=== PATIENT | male | born 1950 | race Caucasian/White ===

== ENCOUNTER → 2018-03-03 | Outpatient (CLI) | payer BC | END | disposition home or self-care (01) | LOC: CVU 12:14 | PROVIDERS: ATTEND Internal Medicine Cardiovascular Disease | DX: I11.9 Hypertensive heart disease without heart failure (principal); I48.91 Unspecified atrial fibrillation | CPT/HCPCS: 93306 ==

== ENCOUNTER → 2018-04-04 | Outpatient (CLI) | payer BC ==
[~2018-04-04] MED LIST: ASCO1TAB2 PO; ASCO1TAB4 PO; ASPI325T17 PO; ATOR20TA9 PO; BUDE10.2 INH; CARI350T14 PO; CHOL500045 PO; DIAZ10TA4 PO; DILT240C77 PO; DULO60CA7 PO; ESOM40CA PO; HYDR25TA6 PO; LEVA15HF4 INH; LEVO200T42 PO; LEVO25TA45 PO; METH5TAB2 PO; MONT10TA9 PO; OMEG-157 PO; OXYC-307 PO; PRAS25CA6 PO; TAMS0.4C2 PO; TELM80TA PO; UBID100C24 PO; VITA150T PO
== END | disposition home or self-care (01) ==
LOC: STAR 11:03
PROVIDERS: ATTEND Internal Medicine Cardiovascular Disease
DX: Z02.9 Encounter for administrative examinations, unspecified (principal)

== ENCOUNTER → 2018-04-04 | Outpatient (CLI) | payer BC ==
[~2018-04-04] MED LIST changes: +OMNIPAQUE 350 MG/ML, 150 ML BOTTLE ONE
== END | disposition home or self-care (01) ==
LOC: CFH 09:49
PROVIDERS: ATTEND Internal Medicine Cardiovascular Disease
DX: I48.91 Unspecified atrial fibrillation (principal); J98.4 Other disorders of lung; I11.9 Hypertensive heart disease without heart failure
CPT/HCPCS: 75572; Q9967

== ENCOUNTER 2018-04-09 06:23 | Inpatient (IN) | payer BC, MEDICARE ==
[2018-04-04 11:36] VITALS: BP 151/95
[~2018-04-09] VITALS: Ht 180.3 cm; Wt 114.8 kg
[~2018-04-09 06:23] MED LIST changes: -OMNIPAQUE 350 MG/ML, 150 ML BOTTLE ONE
[2018-04-09] MEDS ORDERED: SODIUM CHLORIDE 0.9% 1,000 ML IV SCH (07:13)
[2018-04-09] MEDS ORDERED: SODIUM CHLORIDE 0.9% 1,000 ML IV ONE (07:30)
[2018-04-09] MEDS ORDERED: HEPARIN 1,000 UNITS/ML, 10ML ONE (07:42)
[2018-04-09] MEDS ORDERED: PROTAMINE SULFATE 10 MG/ML, 5ML ONE (07:42)
[2018-04-09] MEDS ORDERED: FENTANYL PF 250 MCG/5ML ONE (08:04)
[2018-04-09] MEDS ORDERED: MIDAZOLAM 1 MG/ML, 2ML ONE (08:04)
[2018-04-09] MEDS ORDERED: DEXAMETHASONE 4 MG/ML, 1ML ONE (08:06)
[2018-04-09] MEDS ORDERED: PROPOFOL 10 MG/ML, 20ML ONE (08:06)
[2018-04-09] MEDS ORDERED: ONDANSETRON 2MG/ML, 2ML ONE (08:06)
[2018-04-09] MEDS ORDERED: ROCURONIUM 10 MG/ML,10ML ONE (08:06)
[2018-04-09] MEDS ORDERED: LIDOCAINE 2%, 50ML ONE (08:26)
[2018-04-09] MEDS ORDERED: FENTANYL PF 100 MCG/2ML ONE (10:04)
[2018-04-09] MEDS ORDERED: APIXABAN 5 MG TABLET ONE (10:40)
[2018-04-09] MEDS ORDERED: CARISOPRODOL 350 MG TABLET PO SCH (11:00)
[2018-04-09] MEDS ORDERED: ZOLPIDEM 5MG TABLET PO PRN ×2 (11:00→16:30)
[2018-04-09] MEDS ORDERED: APIXABAN 5 MG TABLET PO SCH (11:00)
[2018-04-09] MEDS ORDERED: TEMPLATE NON-FORMULARY MED. (Levalbuterol Tartrate** (Xopenex Hfa**) 2 PUFF) INH PRN ×2 (11:00→16:30)
[2018-04-09] MEDS ORDERED: ONDANSETRON ODT 8 MG PO PRN (11:30)
[2018-04-09] MEDS ORDERED: OXYcodone 5 MG/5 ML ORAL.SOL UDC PO PRN (11:30)
[2018-04-09] MEDS ORDERED: hydrALAzine 20 MG/ML, 1ML IV PRN (11:30)
[2018-04-09] MEDS ORDERED: DIPHENHYDRAMINE 50 MG/ML, 1ML IVPush PRN (11:30)
[2018-04-09] MEDS ORDERED: PROMETHAZINE 25 MG SUPP PR PRN (11:30)
[2018-04-09] MEDS ORDERED: MORPHINE SULFATE 4 MG/ML, 1ML IVPush PRN (11:30)
[2018-04-09] MEDS ORDERED: MIDAZOLAM 1 MG/ML, 2ML IV PRN (11:30)
[2018-04-09] MEDS ORDERED: EPHEDRINE 50 MG/ML, 1ML IVPush PRN (11:30)
[2018-04-09] MEDS ORDERED: PROMETHAZINE 25 MG/ML, 1ML IV PRN (11:30)
[2018-04-09] MEDS ORDERED: LABETALOL 5MG/ML, 20ML IV PRN (11:30)
[2018-04-09] MEDS ORDERED: FENTANYL PF 100 MCG/2ML IV PRN (11:30)
[2018-04-09] MEDS ORDERED: ACETAMINOPHEN 325 MG TABLET PO PRN (11:30)
[2018-04-09 16:07] VITALS: BP 137/86
[2018-04-09] MEDS: OXYcodone/APAP 10/325MG TABLET PO SCH ×3 (16:40→23:09)
[2018-04-09] MEDS ORDERED: OXYcodone/APAP 10/325MG TABLET ONE ×2 (17:25→23:07)
[2018-04-09] MEDS ORDERED: SOTALOL 120MG TABLET PO SCH (18:00)
[2018-04-09 18:10] VITALS: BP 119/76
[2018-04-09] MEDS: SOTALOL 120MG TABLET PO SCH (18:11)
[2018-04-09] MEDS ORDERED: BIOFLAVONOID PO SCH (21:00)
[2018-04-09] MEDS: TEMPLATE NON-FORMULARY MED. (Budesonide/Formoterol Fumarate (Symbicort 160-4.5 Mcg Inhaler INH SCH (21:00)
[2018-04-09] MEDS ORDERED: [UNRECOGNIZED DRUG - OTHER] PO SCH (21:00)
[2018-04-09] MEDS ORDERED: TEMPLATE NON-FORMULARY MED. (Atorvastatin Calcium** 20 MG) PO SCH (21:00)
[2018-04-09] MEDS ORDERED: TEMPLATE NON-FORMULARY MED. (Esomeprazole Magnesium** (Nexium**) 40 MG) PO SCH (21:00)
[2018-04-09] MEDS ORDERED: ASCORBATE CALCIUM PO SCH (21:00)
[2018-04-09] MEDS ORDERED: TEMPLATE NON-FORMULARY MED. (Budesonide/Formoterol Fumarate (Symbicort 160-4.5 Mcg Inhaler INH SCH (21:00)
[2018-04-09] MEDS: CARISOPRODOL 350 MG TABLET PO SCH (21:00)
[2018-04-09] MEDS: ATORVASTATIN 20 MG TABLET PO SCH (21:09)
[2018-04-09] MEDS: ASCORBIC ACID 500 MG TABLET PO SCH (21:09)
[2018-04-09] MEDS: OMEPRAZOLE 20 MG CAPSULE.DR PO SCH (21:10)
[2018-04-09] MEDS: APIXABAN 5 MG TABLET PO SCH (21:10)
[2018-04-10 01:53] VITALS: BP 116/69
[2018-04-10] MEDS: CARISOPRODOL 350 MG TABLET PO SCH (02:34)
[2018-04-10] MEDS ORDERED: OXYcodone/APAP 10/325MG TABLET ONE ×4 (04:56→23:37)
[2018-04-10] MEDS: OXYcodone/APAP 10/325MG TABLET PO SCH ×4 (04:58→23:43)
[2018-04-10] MEDS: SOTALOL 120MG TABLET PO SCH ×2 (06:03→17:41)
[2018-04-10] MEDS ORDERED: LEVOTHYROXINE 100 MCG TABLET ONE (07:49)
[2018-04-10 07:59] VITALS: BP 134/73
[2018-04-10] MEDS: LEVOTHYROXINE 200 MCG TABLET PO SCH (08:35)
[2018-04-10] MEDS: LEVOTHYROXINE 25 MCG TABLET PO SCH (08:35)
[2018-04-10] MEDS: OMEPRAZOLE 20 MG CAPSULE.DR PO SCH ×2 (08:35→20:31)
[2018-04-10] MEDS ORDERED: DIAZEPAM 5 MG TABLET ONE (08:41)
[2018-04-10] MEDS: DIAZEPAM 10 MG TABLET PO SCH (08:42)
[2018-04-10] MEDS: TEMPLATE NON-FORMULARY MED. (Telmisartan** (Micardis**) 80 MG) PO SCH (08:43)
[2018-04-10] MEDS: TEMPLATE NON-FORMULARY MED. (Budesonide/Formoterol Fumarate (Symbicort 160-4.5 Mcg Inhaler INH SCH ×2 (08:43→20:33)
[2018-04-10] MEDS: OMEGA-3/FISH OIL CAPSULE PO SCH (08:48)
[2018-04-10] MEDS: MONTELUKAST 10 MG TABLET PO SCH (08:49)
[2018-04-10] MEDS: CHOLECALCIFEROL 1,000 UNIT TABLET PO SCH (08:49)
[2018-04-10] MEDS: HYDROCHLOROTHIAZIDE 25 MG TABLET PO SCH (08:49)
[2018-04-10] MEDS: DULOXETINE 30 MG CAPSULE.DR PO SCH (08:49)
[2018-04-10] MEDS: TAMSULOSIN 0.4 MG CAP.ER.24H PO SCH (08:49)
[2018-04-10] MEDS: ASCORBIC ACID 500 MG TABLET PO SCH ×2 (08:50→20:31)
[2018-04-10] MEDS: APIXABAN 5 MG TABLET PO SCH ×2 (08:50→20:30)
[2018-04-10] MEDS ORDERED: LEVOTHYROXINE 200 MCG TABLET PO SCH (09:00)
[2018-04-10] MEDS ORDERED: FISH OIL PO SCH (09:00)
[2018-04-10] MEDS ORDERED: TEMPLATE NON-FORMULARY MED. (Prasterone (Dhea) (Dhea 25) 25 MG) PO SCH ×2 (09:00)
[2018-04-10] MEDS ORDERED: DHA PO SCH (09:00)
[2018-04-10] MEDS ORDERED: [UNRECOGNIZED DRUG - OTHER] PO SCH (09:00)
[2018-04-10] MEDS ORDERED: CHOLECALCIFEROL 5000 UNIT PO SCH (09:00)
[2018-04-10] MEDS ORDERED: TEMPLATE NON-FORMULARY MED. (Telmisartan** (Micardis**) 80 MG) PO SCH (09:00)
[2018-04-10] MEDS ORDERED: TEMPLATE NON-FORMULARY MED. (Duloxetine Hcl (Cymbalta**) 60 MG) PO SCH (09:00)
[2018-04-10] MEDS ORDERED: OMEGA PO SCH (09:00)
[2018-04-10] MEDS ORDERED: [UNRECOGNIZED DRUG - OTHER] PO SCH (09:00)
[2018-04-10] MEDS ORDERED: EPA PO SCH (09:00)
[2018-04-10] MEDS ORDERED: ASCORBATE CALCIUM PO SCH (09:00)
[2018-04-10] MEDS ORDERED: METHADONE 5 MG TABLET PO SCH (09:00)
[2018-04-10] MEDS ORDERED: LEVOTHYROXINE 25 MCG TABLET PO SCH (09:00)
[2018-04-10] MEDS ORDERED: MONTELUKAST SODIUM 10 MG PO SCH (09:00)
[2018-04-10] MEDS ORDERED: BIOFLAVONOID PO SCH (09:00)
[2018-04-10] MEDS ORDERED: ARTIFICIAL TEARS 15 DROP/ML BOTTLE EACHEYE PRN (09:00)
[2018-04-10] MEDS ORDERED: TAMSULOSIN 0.4 MG CAP.ER.24H PO SCH (09:00)
[2018-04-10] MEDS ORDERED: HYDROCHLOROTHIAZIDE 25 MG TABLET PO SCH (09:00)
[2018-04-10] MEDS ORDERED: DIAZEPAM 10 MG TABLET PO SCH (09:00)
[2018-04-10 14:30] VITALS: BP 121/72
[2018-04-10 19:24] VITALS: BP 114/64
[2018-04-10] MEDS ORDERED: METHADONE 10 MG TABLET ONE (20:16)
[2018-04-10] MEDS: ATORVASTATIN 20 MG TABLET PO SCH (20:31)
[2018-04-10] MEDS: METHADONE 5 MG TABLET PO SCH (20:32)
[2018-04-11 03:06] VITALS: BP 130/75
[2018-04-11] MEDS ORDERED: OXYcodone/APAP 10/325MG TABLET ONE ×4 (05:10→23:04)
[2018-04-11] MEDS: SOTALOL 120MG TABLET PO SCH ×2 (05:22→17:57)
[2018-04-11] MEDS: OXYcodone/APAP 10/325MG TABLET PO SCH ×4 (05:22→23:08)
[2018-04-11 07:59] VITALS: BP 135/77
[2018-04-11] MEDS: TEMPLATE NON-FORMULARY MED. (Telmisartan** (Micardis**) 80 MG) PO SCH (09:00)
[2018-04-11] MEDS: TEMPLATE NON-FORMULARY MED. (Budesonide/Formoterol Fumarate (Symbicort 160-4.5 Mcg Inhaler INH SCH ×2 (09:00→20:24)
[2018-04-11] MEDS: DIAZEPAM 10 MG TABLET PO SCH (09:00)
[2018-04-11] MEDS: LEVOTHYROXINE 200 MCG TABLET PO SCH (09:00)
[2018-04-11] MEDS ORDERED: DIAZEPAM 5 MG TABLET ONE (09:21)
[2018-04-11] MEDS ORDERED: LEVOTHYROXINE 100 MCG TABLET ONE ×3 (09:22→09:24)
[2018-04-11] MEDS: APIXABAN 5 MG TABLET PO SCH ×2 (09:29→20:22)
[2018-04-11] MEDS: OMEGA-3/FISH OIL CAPSULE PO SCH (09:29)
[2018-04-11] MEDS: DULOXETINE 30 MG CAPSULE.DR PO SCH (09:29)
[2018-04-11] MEDS: MONTELUKAST 10 MG TABLET PO SCH (09:30)
[2018-04-11] MEDS: HYDROCHLOROTHIAZIDE 25 MG TABLET PO SCH (09:30)
[2018-04-11] MEDS: OMEPRAZOLE 20 MG CAPSULE.DR PO SCH ×2 (09:30→20:21)
[2018-04-11] MEDS: TAMSULOSIN 0.4 MG CAP.ER.24H PO SCH (09:30)
[2018-04-11] MEDS: ASCORBIC ACID 500 MG TABLET PO SCH ×2 (09:32→20:22)
[2018-04-11] MEDS: CHOLECALCIFEROL 1,000 UNIT TABLET PO SCH (09:32)
[2018-04-11] MEDS: LEVOTHYROXINE 25 MCG TABLET PO SCH (09:33)
[2018-04-11] MEDS ORDERED: METHADONE 10 MG TABLET ONE ×2 (11:39→20:08)
[2018-04-11 16:41] VITALS: BP 119/74
[2018-04-11 19:35] VITALS: BP 111/70
[2018-04-11] MEDS: METHADONE 5 MG TABLET PO SCH (20:22)
[2018-04-11] MEDS: ATORVASTATIN 20 MG TABLET PO SCH (20:22)
[2018-04-12 01:45] VITALS: BP 128/80
[2018-04-12] MEDS ORDERED: OXYcodone/APAP 10/325MG TABLET ONE ×2 (05:23→11:29)
[2018-04-12 05:36] LABS: ANION GAP 6 mmol/L (5-15); CALCIUM 8.6 mg/dL (8.5-10.1); CHLORIDE 101 mmol/L (98-107); CREATININE 1.13 mg/dL (0.7-1.3)
[2018-04-12] MEDS: OXYcodone/APAP 10/325MG TABLET PO SCH ×2 (05:57→11:32)
[2018-04-12] MEDS: SOTALOL 120MG TABLET PO SCH (05:57)
[2018-04-12 07:47] VITALS: BP 108/78
[2018-04-12] MEDS ORDERED: DIAZEPAM 5 MG TABLET ONE (08:05)
[2018-04-12] MEDS: LEVOTHYROXINE 25 MCG TABLET PO SCH (08:08)
[2018-04-12] MEDS: OMEGA-3/FISH OIL CAPSULE PO SCH (08:08)
[2018-04-12] MEDS: LEVOTHYROXINE 200 MCG TABLET PO SCH (08:08)
[2018-04-12] MEDS: HYDROCHLOROTHIAZIDE 25 MG TABLET PO SCH (08:09)
[2018-04-12] MEDS: DULOXETINE 30 MG CAPSULE.DR PO SCH (08:09)
[2018-04-12] MEDS: CHOLECALCIFEROL 1,000 UNIT TABLET PO SCH (08:09)
[2018-04-12] MEDS: TAMSULOSIN 0.4 MG CAP.ER.24H PO SCH (08:09)
[2018-04-12] MEDS: APIXABAN 5 MG TABLET PO SCH (08:09)
[2018-04-12] MEDS: MONTELUKAST 10 MG TABLET PO SCH (08:09)
[2018-04-12] MEDS: OMEPRAZOLE 20 MG CAPSULE.DR PO SCH (08:10)
[2018-04-12] MEDS: TEMPLATE NON-FORMULARY MED. (Budesonide/Formoterol Fumarate (Symbicort 160-4.5 Mcg Inhaler INH SCH (08:10)
[2018-04-12] MEDS: ASCORBIC ACID 500 MG TABLET PO SCH (08:10)
[2018-04-12] MEDS: TEMPLATE NON-FORMULARY MED. (Telmisartan** (Micardis**) 80 MG) PO SCH (08:11)
[2018-04-12] MEDS ORDERED: APIX5TAB PO (08:52)
[2018-04-12] MEDS ORDERED: SOTA120T14 PO (08:52)
== END 2018-04-12 11:37 | disposition home or self-care (01) | DRG 274 ==
LOC: CACL 06:23 → ORIP 10:34 → UNDODISIN 16:21 → 5SO 16:23
PROVIDERS: ADMIT Internal Medicine Cardiovascular Disease; ATTEND Internal Medicine Cardiovascular Disease
PROC: 02K83ZZ Map Conduction Mechanism, Percutaneous Approach (ICD-10-PCS; 2018-04-09)
PROC: 4A023FZ Measurement of Cardiac Rhythm, Percutaneous Approach (ICD-10-PCS; 2018-04-09)
PROC: 4A0234Z Measurement of Cardiac Electrical Activity, Percutaneous Approach (ICD-10-PCS; 2018-04-09)
PROC: 02583ZZ Destruction of Conduction Mechanism, Percutaneous Approach (ICD-10-PCS; principal; 2018-04-09 08:00)
PROC: 5A09357 Assistance with Respiratory Ventilation, Less than 24 Consecutive Hours, Continuous Positive Airway Pressure (ICD-10-PCS; 2018-04-10)
PROC: 5A09357 Assistance with Respiratory Ventilation, Less than 24 Consecutive Hours, Continuous Positive Airway Pressure (ICD-10-PCS; 2018-04-11)
DX: I48.91 Unspecified atrial fibrillation (principal); D68.69 Other thrombophilia; I45.10 Unspecified right bundle-branch block; I47.1 Supraventricular tachycardia; Z79.01 Long term (current) use of anticoagulants; I45.6 Pre-excitation syndrome; E78.5 Hyperlipidemia, unspecified; I10 Essential (primary) hypertension; J44.9 Chronic obstructive pulmonary disease, unspecified; E89.0 Postprocedural hypothyroidism
CPT/HCPCS: 36415; 80048; 83735; 85347; 93005; 93308; 93312; 93321; 93325; 93613; 93656; 93662; 94660; C1732; C1766; C1893; C1894; J1100; J1644; J2250; J2405; J2704; J2720; J3010; C1730; C1759

== ENCOUNTER → 2018-06-05 | Outpatient (CLI) | payer BC, MEDICARE ==
[~2018-06-05] MED LIST changes: +APIX5TAB PO; +OMNIPAQUE 350 MG/ML, 150 ML BOTTLE ONE; +SOTA120T14 PO
== END | disposition home or self-care (01) ==
LOC: CFH 12:55
PROVIDERS: ATTEND Internal Medicine Cardiovascular Disease
DX: J92.9 Pleural plaque without asbestos (principal); J98.4 Other disorders of lung; I48.91 Unspecified atrial fibrillation; J44.9 Chronic obstructive pulmonary disease, unspecified
CPT/HCPCS: 71046; 75572; 82565; Q9967